=== PATIENT | female | born 1955 | race Caucasian/White ===

== ENCOUNTER 2016-07-17 04:53 | Inpatient (IN) | payer BC, OTHER ==
--- NOTE | 2016-06-18 09:22 | HISTORY & PHYSICAL EXAMINATION ---
DATE OF ADMISSION: 07/17/2016 PROCEDURE: Right knee replacement. HISTORY OF PRESENT ILLNESS: Codie is a pleasant 61-year-old female who presents for preoperative evaluation prior to a right knee replacement. She has been having pain in this knee for many years now, which has gradually worsened, she has had previous cortisone injections, as well as viscosupplementation without relief. She has tried oral anti-inflammatories including naproxen, and also has taken an occasional [place] for pain. At this point in time, has failed conservative measures and after discussing further care will proceed with a right knee replacement. PAST MEDICAL HISTORY: 1. Hypertension. 2. Hypothyroidism. ALLERGIES: No known drug allergies. MEDICATIONS: 1. Levothyroxine 88 mcg daily. 2. Losartan 50 mg daily. 3. Aleve as needed. FAMILY HISTORY: Noncontributory. SOCIAL HISTORY: The patient is . Lives in a 1 story home. Denies a history of smoking or tobacco use. Consumes 2 alcoholic beverages per week. PAST SURGICAL HISTORY: 1. Left toe surgery 2013. 2. Right great toe surgery 2013. 3. Carpal tunnel bilateral hands 2013. 4. Trigger thumb both hands 2013. 5. Rectocele repair in 1979. REVIEW OF SYSTEMS: Otherwise negative. Please see HPI for pertinent positives. PHYSICAL EXAMINATION: GENERAL: Allen 61-year-old female in no acute distress, alert and oriented x3. She is inches tall, weighs 166 pounds. HEENT: Normocephalic, atraumatic. CARDIAC: Regular rate and rhythm. No murmurs or gallops appreciated. Resting pulse 76 beats per minute. LUNGS: Clear to auscultation without rales or wheeze bilaterally. ABDOMEN: Soft, nontender. Bowel sounds present. EXTREMITIES: Right lower extremity is neurovascularly intact. Calves are soft and nontender. DP pulse +2. Overall has varus alignment. She has positive crepitation with motion. Range of motion is 0/3/115. Knee is ligamentously stable. Imaging reviewed of the right knee show findings consistent with degenerative joint disease including joint space narrowing, subchondral sclerosis, peripheral osteophytes noted. Has complete loss of joint space of the medial compartment and varus alignment. IMPRESSION: 1. Right knee degenerative joint disease. 2. Hypertension. 3. Hypothyroidism. PLAN: Further care discussed with patient. At this point in time, has failed conservative measures, will proceed with a right knee replacement. Will place on aspirin 81 mg p.o. b.i.d. for a month postop. Will discuss with bilingual social worker in-home therapy for 2 weeks postop.
[2016-07-17] VITALS (11 sets, daily range): BP systolic 90–131; BP diastolic 51–85; PULSE 63–77; TEMP 36.2–36.7; O2SAT 94–100; Ht 160 cm; Wt 77.7 kg
[~2016-07-17] VITALS: Ht 160 cm; Wt 77.7 kg
[~2016-07-17 04:53] MED LIST: CALC1CAP24 PO; CHOL1000 PO; CYAN500T PO; GLUC1CAP33 PO; LEVO88TA3 PO; LOSA50TA6 PO; NAPR-1169 PO; PAIN MEDICATION PO; ZOLP10TA6 PO; [UNRECOGNIZED DRUG - OTHER] PO
[2016-07-17] MEDS ORDERED: ACETAMINOPHEN 500 MG TAB PO SCH (06:00)
[2016-07-17] MEDS ORDERED: FAMOTIDINE 20 MG TAB PO SCH (06:00)
[2016-07-17] MEDS ORDERED: LACTATED RINGER'S 1000ML 500 ML IV ONE (06:00)
[2016-07-17] MEDS ORDERED: LACTATED RINGER'S 1000ML 1,000 ML IV SCH (06:00)
[2016-07-17] MEDS ORDERED: LACTATED RINGER'S 500 ML IV SCH (06:00)
[2016-07-17] MEDS ORDERED: DEXAMETHASONE 4 MG TAB PO SCH (06:00)
[2016-07-17] MEDS ORDERED: METOCLOPRAMIDE HCL 10 MG TAB PO SCH (06:00)
[2016-07-17] MEDS ORDERED: CeleBREX 200 MG CAP PO SCH (06:00)
[2016-07-17] MEDS ORDERED: CEFAZOLIN 1000MG/55 ML D5W 55 ML IV SCH (06:00)
[2016-07-17] MEDS ORDERED: GABAPENTIN 300 MG CAP PO SCH (06:00)
[2016-07-17] MEDS ORDERED: ROPIVACAINE 5MG/ML 30 ML 150 MG, BUPIVACAINE/EPINEPHR 0.5% MPF 30 ML, KETOROLAC TROMETH... INFIL SCH ×7 (06:00)
[2016-07-17] MEDS ORDERED: BUPIVACAINE 0.5 % 5 MG/1 ML PF 10ML VIAL ONE (06:28)
[2016-07-17] MEDS ORDERED: BUPIVACAINE 0.25% 30 ML VIAL ONE (06:29)
[2016-07-17] MEDS ORDERED: NURSING VERBAL MED ORDER ONE (06:45)
[2016-07-17] MEDS ORDERED: LACTATED RINGER'S 1000ML 1,000 ML IV PRN (06:49)
[2016-07-17] MEDS ORDERED: ONDANSETRON INJ 2 MG/ML 2 ML VIAL IV PRN ×2 (07:00→09:15)
[2016-07-17] MEDS ORDERED: FENTANYL CITRATE INJ 50 MCG/1 ML 2 ML VIAL IV PRN (07:00)
[2016-07-17] MEDS: TRANEXAMIC ACID INJ 1,000 MG in SODIUM CHLORIDE 0.9% 100ML 100 ML IV SCH ×2 (07:03→10:43)
--- NOTE | 2016-07-17 07:12 | History & Physical Bridge Note ---
H&P Re-Evaluation Bridge Note: I have examined the patient, reviewed the History & Physical and in the interval since the performance of the History & Physical I have noted the following changes of clinical significance: No changes noted
--- NOTE | 2016-07-17 08:21 | [facility] Post Operative Brief Note ---
Immediate Operative Summary Operative Date Jul 17, 2016. Pre-Operative Diagnosis Right Knee Degenerative Joint Disease Post-Operative Diagnosis Right Knee Degenerative Joint Disease Procedure(s) Performed Right Total Knee Arthroplasty Surgeon Dr. Xander Barrett Health Services Director Surgeon(s) Ridge Alex PA-C Estimated Blood Loss 10 ML Findings severe djd rt knee Specimens A. Right knee bone and tissue Complication(s) None Disposition Recovery Room / PACU
[2016-07-17] MEDS ORDERED: BACITRACIN 50000 UNIT VIAL IR ONE (08:27)
[2016-07-17] MEDS ORDERED: POVIDONE-IODINE OP SOLN 30 ML BTL TOP ONE (08:27)
--- NOTE | 2016-07-17 08:32 | OPERATIVE REPORT ---
DATE OF OPERATION: 07/17/2016 PREOPERATIVE DIAGNOSIS: Severe degenerative joint disease, right knee. POSTOPERATIVE DIAGNOSIS: Severe degenerative joint disease, right knee. PROCEDURE: Right total knee arthroplasty utilizing Stratton \T\ Nephew Journey II patient matched block knee. SURGEON: Dr. Barrett. ENVIRONMENTAL HEALTH SAFETY MANAGER: Ridge Alex, who was necessary for prepping, draping, retraction, closure of deep fascia, subQ and skin and was necessary for the case. ESTIMATED BLOOD LOSS: 10 mL. TOURNIQUET TIME: 40 minutes. COMPLICATIONS: None. HISTORY OF PRESENT ILLNESS: The patient presents as a very pleasant 61-year-old white female who presents with complaints of severe end-stage degenerative joint disease of her right knee. She has failed attempts at conservative management including physical therapy, anti-inflammatories, relative rest, activity modification and she presents for total knee arthroplasty. OPERATION AND FINDINGS: PROCEDURE: The patient was properly prepped and draped in supine position for total knee arthroplasty after identifying the appropriate surgical site. An anterior midline incision was made through the subcutaneous tissues down to the region of the extensor mechanism. A medial parapatellar incision was subsequently made. Meticulous hemostasis was obtained and performed at all times. The patella having been subluxed lateralward, medial and lateral meniscal remnants were excised. The patellar cut was then initially made and was sized to the appropriate size. After subluxing the tibia forward the appropriate meniscal fragments having been removed the distal femur was then cut first utilizing a Stratton and Nephew block. The distal femoral cuts and chamfer cuts were all made under direct visualization and the proximal tibial osteotomy cut was also made utilizing Stratton and Nephew blocks and checked with an extramedullary guide. The appropriate trial components on the femur and tibia were placed. Appropriate trial spacers were used to check flexion and extension gaps. With flexion and extension gaps being equal, the components were then subsequently after thorough irrigation and debridement lavage components were then subsequently cemented in the following order: size 4 femur, 3 tibia, 13 poly and 29 oval patella. Exparel was used for intraoperative anesthesia, the medial parapatellar incision was closed utilizing #1 Vicryl, subQ was closed with 2-0 Vicryl, skin was closed with skin clips. A sterile compression dressing was placed. The patient was taken to recovery room in stable condition. Due to the complex nature of the procedure, the entire surgery was performed with the operational assistance of Ridge Alex PA-C. The clinical services assistant, under direct supervision, was involved in the actual performance of all aspects of the surgical procedure including hemostasis, tissue retraction and incision, instrument management, patient positioning, and wound closure. I attest to the content of the Intraoperative Record and any orders documented therein. Any exceptio ns are noted below.
[2016-07-17] MEDS ORDERED: MAGNESIUM HYDROXIDE SUSP 30 ML UDC PO PRN (09:15)
[2016-07-17] MEDS ORDERED: SOD PHOSPHATE/SOD BIPHOSPHATE ENEMA 132 ML BTL PR PRN (09:15)
[2016-07-17] MEDS ORDERED: BISACODYL 10 MG SUPP PR PRN (09:15)
[2016-07-17] MEDS ORDERED: MoRPHine SULFATE 2 MG/ML CARP IV PRN (09:15)
[2016-07-17] MEDS ORDERED: KETOROLAC TROMETHAMINE 30 MG/ML VIAL IV. PRN (09:15)
[2016-07-17] MEDS ORDERED: ALUMINUM/MAGNESIUM/SIMETH (MAALOX MAX) 30 ML UDC PO PRN (09:15)
--- NOTE | 2016-07-17 09:49 | DIAGNOSTIC IMAGING REPORT ---
RIGHT KNEE 2 VIEWS History: Right total knee arthroplasty. Degenerative arthritis. Postop. FINDINGS: The patient is status post a right total knee arthroplasty. The hardware is intact. No fracture or dislocation. Surgical drains are in place. IMPRESSION: Right total knee arthroplasty. No evidence for hardware complication. Electronically signed by: Simeon Obando M.D. 07/17/2016 9:47 AM Dictated Date/Time: 07/17/2016 9:38 AM
--- NOTE | 2016-07-17 09:56 | Anesthesiology Progress Note ---
Anesthesia Post Op Note Date & Time Jul 17, 2016 at 09:55 Vital Signs Pain Intensity: 0 Vital Signs Past 12 Hours Date Time Temp Pulse Resp B/P Pulse Ox O2 Delivery O2 Flow Rate FiO2 07/17/16 09:40 56 14 92/64 100 Nasal Cannula 2 07/17/16 09:30 55 14 84/63 100 Nasal Cannula 2 07/17/16 09:20 59 14 90/59 100 Nasal Cannula 2 07/17/16 09:10 63 14 91/62 100 Nasal Cannula 2 07/17/16 09:02 36.6 72 12 89/59 97 Nasal Cannula 2 07/17/16 05:50 36.5 72 18 117/85 98 Room Air Notes Mental Status: alert / awake / arousable, participated in evaluation Nausea / Vomiting: adequately controlled Pain: adequately controlled Airway Patency, RR, SpO2: stable & adequate BP & HR: stable & adequate Hydration State: stable & adequate Neuraxial Anesthesia: was administered, sensory block is resolving Anesthetic Complications: no major complications apparent Pt doing well.
[2016-07-17] MEDS ORDERED: MoRPHine SULFATE 4 MG/ML 1 ML CARP\\VIAL IV PRN (11:00)
[2016-07-17] MEDS ORDERED: MoRPHine SULFATE 10 MG/ML CARP/VIAL IV PRN (11:00)
[2016-07-17] MEDS: D5W AND 1/2NSS + 20MEQ KCL 1,000 ML IV SCH ×2 (11:24→21:33)
[2016-07-17] MEDS: FERROUS GLUCONATE 324 MG TAB PO SCH ×2 (11:25→17:57)
[2016-07-17] MEDS: ACETAMINOPHEN 500 MG TAB PO SCH ×2 (14:03→21:36)
[2016-07-17] MEDS: CEFAZOLIN IV 1,000 MG in DEXTROSE 5% 50ML 50 ML IV SCH ×2 (16:01→23:41)
[2016-07-17] MEDS: ASPIRIN 81 MG ECTAB PO SCH (21:34)
[2016-07-17] MEDS: SENNA 8.6 MG TAB PO SCH (21:35)
[2016-07-17] MEDS: DOCUSATE SODIUM 100 MG CAP PO SCH (21:35)
[2016-07-17] MEDS: OXYCODONE HCL 10 MG TABCR (OXYCONTIN) PO SCH (21:35)
[2016-07-17] MEDS: OXYCODONE HCL IR 5 MG TAB (IMMEDIATE RELEASE) PO PRN (21:36)
[2016-07-17] MEDS: ZOLPIDEM TARTRATE 10 MG TAB PO PRN (23:49)
[2016-07-18 03:50] VITALS: BP 105/71; PULSE 67; TEMP 36.5; O2SAT 97
[2016-07-18] MEDS: D5W AND 1/2NSS + 20MEQ KCL 1,000 ML IV SCH (06:03)
[2016-07-18] MEDS: LEVOTHYROXINE 88 MCG TAB PO SCH (06:03)
[2016-07-18] MEDS: ACETAMINOPHEN 500 MG TAB PO SCH ×3 (06:04→22:03)
[2016-07-18 06:27] LABS: HEMATOCRIT 30.3 % (37-47); MEAN CELL VOLUME 89.9 fL (80-100); MEAN CORPUSCULAR HEMOGLOBIN 29.7 pg (25-34); PLATELET COUNT 255 K/uL (130-400); RED BLOOD COUNT 3.37 M/uL (4.2-5.4); WHITE BLOOD COUNT 18.15 K/uL (4.8-10.8)
[2016-07-18 06:33] LABS: PROTHROMBIN TIME (PATIENT) 10.9 SECONDS (9.0-12.0)
[2016-07-18 06:53] LABS: BUN/CREATININE RATIO 21.8 (10-20); CALCIUM 8.8 mg/dl (8.5-10.1); CREATININE 0.74 mg/dl (0.60-1.20); POTASSIUM 4.2 mmol/L (3.5-5.1)
[2016-07-18 07:19] VITALS: BP 106/71; PULSE 67; TEMP 36.3; O2SAT 99
--- NOTE | 2016-07-18 07:22 | Orthopedic Progress Note ---
Orthopedic Progress Note Date of Service Jul 18, 2016. Subjective Post OP Day: 1 (right TKA) Reports: feeling well, pain controlled w PO medications, Denies: SOB, calf pain , chest pain, complaints, light headedness, nausea / vomiting Objective calves soft nontender, N/V intact, capillary refill less than 2 sec., dressing C /D/I, A&O x3, toes mobile Date Time Temp Pulse Resp B/P Pulse Ox O2 Delivery O2 Flow Rate FiO2 07/18/16 03:50 36.5 67 16 105/71 97 Room Air 07/17/16 23:52 69 101/65 07/17/16 23:35 Room Air 07/17/16 23:32 36.7 72 16 90/51 95 Room Air 07/17/16 19:35 36.6 73 16 131/78 95 Room Air 07/17/16 16:05 36.4 68 18 107/69 94 Room Air 07/17/16 13:11 77 18 107/69 07/17/16 12:30 Room Air 07/17/16 12:10 63 18 109/73 07/17/16 11:02 69 18 111/76 07/17/16 10:38 69 18 103/68 97 2.0 07/17/16 10:33 100 Nasal Cannula 2.0 07/17/16 10:27 36.2 72 16 115/55 100 Nasal Cannula 2.0 07/17/16 10:23 100 Nasal Cannula 2.0 07/17/16 10:05 59 12 99/68 100 Nasal Cannula 2 07/17/16 10:00 58 12 92/65 99 Nasal Cannula 2 07/17/16 09:50 36.4 61 15 102/71 100 Nasal Cannula 2 07/17/16 09:40 56 14 92/64 100 Nasal Cannula 2 07/17/16 09:30 55 14 84/63 100 Nasal Cannula 2 07/17/16 09:20 59 14 90/59 100 Nasal Cannula 2 07/17/16 09:10 63 14 91/62 100 Nasal Cannula 2 07/17/16 09:02 36.6 72 12 89/59 97 Nasal Cannula 2 Laboratory Results 24 Hours: Test 07/18/16 05:55 Hematocrit 30.3 % Hemoglobin 10.0 g/dL Prothromb Time International Ratio 1.0 Prothrombin Time 10.9 SECONDS Assessment & Plan Assessment: POD #1 s/p Right TKA -DVT proph with TEDs/SCDs/ASA -plan for d/c home with HHPT when stable -PT/OT, TKA protocol -prinea dressing 1. Hypertension. 2. Hypothyroidism. Discharge Planning Discharge Planning: home with home health DVT Prophylaxis: TEDs, SCDs, ASA Therapy: Physical Therapy
--- NOTE | 2016-07-18 07:48 | Discharge Instructions ---
Discharge Instructions Admission Reason for Admission: Right Knee Osteoarthritis Discharge Discharge Diagnosis / Problem: s/p right total knee replacement Discharge Goals Goal(s): Decrease discomfort, Improve function, Increase independence Activity Recommendations Activity Limitations: as noted below Weightbearing Status: Right weightbearing (as tolerated) . Instructions / Follow-Up Instructions / Follow-Up ACTIVITY RECOMMENDATIONS: SELF CARE INSTRUCTIONS AFTER TOTAL KNEE REPLACEMENT A. You may need to continue a physical therapy program after discharge from the hospital. There are several options available to you. Your doctor will assist you in selecting the best one for you. 1. An out-patient facility 2 to 3 times a week for therapy or home therapy. 2. Continue working on all exercises taught to you in the hospital. Your goals should be to increase bending of your knee to 90 degrees and beyond and to fully straighten your knee. B. You may progress at your own pace from walking with a walker or crutches to a cane; then to no assistive devices. C. Make walking a part of your daily routine. Be up as much as comfortable with rest periods throughout the day. Rest with leg elevation is very important. Use the ice wrap frequently for the first 3-4 weeks. D. There are no restrictions on activities. You may ride in a car, shop, participate in cotton grader and all social activities. E. Wear the long elastic stockings (CARLITOS hose) 20 hours a day for 2 weeks after surgery. They can be removed several times a day for laundering and for a bath. F. You may shower, no tub baths until cleared by your doctor. SPECIAL CARE INSTRUCTIONS: VERY IMPORTANT TO READ AND REVIEW A. There are a few signs you need to watch for after you are home. Call [facility] if you notice any of the followin. Increased severe knee pain. Some pain is expected especially when you exercise. 2. Increased swelling in your leg or knee; pain or swelling of the calf muscle in either lower leg. 3. Any fluid drainage from the incision. 4. Shortness of breath or chest pain. B. Please call [facility] at if you have any concerns or questions about your operation or recovery. The doctor or his nurse will return your call promptly. C. You must take antibiotics before dental work, bladder, bowel or other surgery. Your doctor will provide you with a permanent care to carry describing this precaution. IMPORTANT: * REMEMBER TO TAKE ASPIRIN, 81 MG, TWICE DAILY FOR 4 WEEKS UNLESS OTHERWISE DIRECTED. THIS IS YOUR BLOOD THINNER. * HIGH RISK PATIENTS MAY BE PRESCRIBED A STRONGER BLOOD THINNER. THIS WILL BE PROVIDED AT DISCHARGE. * CALL IF INCREASED PAIN, REDNESS, DRAINAGE OR FEVER GREATER THAT 101. * WEAR CARLITOS HOSE 20 HOURS PER DAY FOR 2 WEEKS. * DERMABOND Prineo- This is a mesh tape dressing that is covered with glue. It should remain in place until the incision is properly healed, usually 10-14 days. This dressing is designed to naturally slough off. You may trim the excess mesh tape as it peels off. Incision may be briefly wet in a shower. Dry immediately by blotting with a clean, dry towel. Do not bath or swim until instructed by your doctor. Do not scratch, rub, or pick at the dressing. Do not apply any topical ointments or lotions until dressing is completely removed and/or instructed by your doctor. There may be a small piece of suture material at one end of your incision. Do not pull or trim this. If it is bothersome or catching on clothing, you may cover it with a band-aid. FOLLOW UP VISIT: If appointment is not already scheduled: Please call [facility] to make a follow-up appointment for 2 weeks after your surgery at . Current Hospital Diet Patient's current hospital diet: Regular Diet Discharge Diet Recommended Diet: Regular Diet Procedures Procedures Performed: Right Total Knee Arthroplasty Cemented Pending Studies Studies pending at discharge: no Laboratory Results Hemoglobin A1c Test 06/18/16 15:31 Range/Units Estimated Average Glucose 108 mg/dl Hemoglobin A1c 5.4 4.5-5.6 % Medical Emergencies . Who to Call and When: Medical Emergencies: If at any time you feel your situation is an emergency, please call 911 immediately. . Non-Emergent Contact Non-Emergency issues call your: Primary Care Provider, Surgeon . "Provider Documentation" section prepared by Ridge Alex. VTE Core Measure Inpt VTE Proph given/why not?: Other Anticoagulation (ASA 81mg po bid x 1 month ), T.E.D. Stockings, SCD's
[2016-07-18] MEDS: PANTOprazole SOD 40 MG TAB PO SCH (08:30)
[2016-07-18] MEDS: LOSARTAN POTASSIUM 50 MG TAB PO SCH (08:30)
[2016-07-18] MEDS: ASPIRIN 81 MG ECTAB PO SCH ×2 (08:30→20:58)
[2016-07-18] MEDS: MULTIVITAMIN TAB PO SCH (08:30)
[2016-07-18] MEDS: DOCUSATE SODIUM 100 MG CAP PO SCH ×2 (08:30→20:58)
[2016-07-18] MEDS: FERROUS GLUCONATE 324 MG TAB PO SCH ×3 (08:30→17:52)
[2016-07-18] MEDS: OXYCODONE HCL 10 MG TABCR (OXYCONTIN) PO SCH ×2 (08:33→20:58)
[2016-07-18] MEDS: OXYCODONE HCL IR 5 MG TAB (IMMEDIATE RELEASE) PO PRN ×4 (08:34→22:04)
--- NOTE | 2016-07-18 10:37 | Anesthesiology Progress Note ---
Anesthesia Post Op Note Date & Time Jul 18, 2016 at 10:35 Vital Signs Pain Intensity: 7.0 Vital Signs Past 12 Hours Date Time Temp Pulse Resp B/P Pulse Ox O2 Delivery O2 Flow Rate FiO2 07/18/16 07:38 Room Air 07/18/16 07:19 36.3 67 16 106/71 99 Room Air 07/18/16 03:50 36.5 67 16 105/71 97 Room Air 07/17/16 23:52 69 101/65 07/17/16 23:35 Room Air 07/17/16 23:32 36.7 72 16 90/51 95 Room Air Notes Mental Status: alert / awake / arousable, participated in evaluation Pt Amnestic to Procedure: Yes Nausea / Vomiting: adequately controlled Pain: adequately controlled Airway Patency, RR, SpO2: stable & adequate BP & HR: stable & adequate Hydration State: stable & adequate Neuraxial Anesthesia: sensory block resolved Anesthetic Complications: no major complications apparent
[2016-07-18 11:03] VITALS: BP 101/66; PULSE 68; TEMP 36.4; O2SAT 98
[2016-07-18 15:04] VITALS: BP 118/78; PULSE 72; TEMP 36.3; O2SAT 98
[2016-07-18] MEDS: MoRPHine SULFATE 2 MG/ML CARP IV PRN ×3 (16:40→23:43)
[2016-07-18 19:36] VITALS: BP 117/76; PULSE 76; TEMP 36.5; O2SAT 96
[2016-07-18] MEDS: CeleBREX 200 MG CAP PO SCH (20:58)
[2016-07-18] MEDS: SENNA 8.6 MG TAB PO SCH (20:58)
[2016-07-18] MEDS: ZOLPIDEM TARTRATE 10 MG TAB PO PRN (22:03)
[2016-07-18 23:50] VITALS: BP 118/79; PULSE 75; TEMP 36.8; O2SAT 96
[2016-07-19] MEDS: OXYCODONE HCL IR 5 MG TAB (IMMEDIATE RELEASE) PO PRN ×3 (02:14→12:24)
[2016-07-19] MEDS: LEVOTHYROXINE 88 MCG TAB PO SCH (06:04)
[2016-07-19] MEDS: ACETAMINOPHEN 500 MG TAB PO SCH (06:04)
--- NOTE | 2016-07-19 07:22 | Orthopedic Progress Note ---
Orthopedic Progress Note Date of Service Jul 19, 2016. Subjective Post OP Day: 2 Reports: feeling well, pain controlled w PO medications, Denies: SOB, calf pain , chest pain, complaints, light headedness, nausea / vomiting Objective calves soft nontender, N/V intact, capillary refill less than 2 sec., incision C /D/I, A&O x3, toes mobile Date Time Temp Pulse Resp B/P Pulse Ox O2 Delivery O2 Flow Rate FiO2 07/18/16 23:50 36.8 75 16 118/79 96 Room Air 07/18/16 23:35 Room Air 07/18/16 19:36 36.5 76 16 117/76 96 Room Air 07/18/16 15:45 Room Air 07/18/16 15:04 36.3 72 16 118/78 98 Room Air 07/18/16 11:03 36.4 68 16 101/66 98 Room Air 07/18/16 07:38 Room Air Assessment & Plan Assessment: POD #2 s/p Right TKA -DVT proph with TEDs/SCDs/ASA -plan for d/c home with HHPT after PT today -PT/OT, TKA protocol -prinea dressing 1. Hypertension. 2. Hypothyroidism. Discharge Planning Discharge Planning: home with home health DVT Prophylaxis: TEDs, SCDs, ASA Therapy: Physical Therapy
[2016-07-19] MEDS ORDERED: CLB200 PO (07:31)
[2016-07-19] MEDS ORDERED: CLC100 PO (07:31)
[2016-07-19] MEDS ORDERED: OXYSR10 PO (07:31)
[2016-07-19] MEDS ORDERED: ONDA8TAB6 PO (07:31)
[2016-07-19] MEDS ORDERED: ASPEC81 PO (07:31)
[2016-07-19] MEDS ORDERED: RXC5 PO (07:31)
[2016-07-19] MEDS ORDERED: ACET-1138 PO (07:31)
[2016-07-19 07:33] VITALS: BP 123/85; PULSE 68; TEMP 36.4; O2SAT 96
--- NOTE | 2016-07-19 07:34 | Discharge Summary ---
Orthopedic Discharge Summary Admission Date/Reason Jul 17, 2016 at 09:10 Right Knee Osteoarthritis. Discharge Date/Disposition Jul 19, 2016 Home with services Diagnosis Principal Diagnosis: s/p Right TKA Procedure(s) Performed Right Total Knee Replacement Consultations NONE Medication Reconciliation New Medications: Ondansetron Hcl (Zofran) 8 Mg Tab 8 MG PO Q8 PRN for Nausea, #20 TAB Acetaminophen (Tylenol Extra Strength) 500 Mg Tab 1000 MG PO Q8H, #126 TAB Aspirin (Aspirin EC Low Dose) 81 Mg Ectab 81 MG PO BID for 30 Days Celecoxib (Celebrex) 200 Mg Cap 200 MG PO BID, #60 CAP Docusate Sodium (Docusate Sodium) 100 Mg Cap 100 MG PO BID for 15 Days, #30 CAP Oxycodone HCl (Oxycontin) 10 Mg Tabcr 10 MG PO Q12, #20 Oxycodone HCl (Oxycodone HCl) 5 Mg Tab 5-10 MG PO Q4H PRN for Pain, #60 TAB Continued Medications: Calcium (Calcium) Unknown Strength Cap Unknown Dose PO QAM Cholecalciferol (Vitamin D3) 1,000 Unit Tab 1 TAB PO QAM, TAB Cyanocobalamin (Vitamin B-12) Unknown Strength Tab Unknown Dose PO QAM, TAB Glucosamine-Chondroitin (Glucosamine & Chondroitin 500-400 mg) Unknown Strength Cap Unknown Dose PO QAM Levothyroxine Sodium (Levothyroxine Sodium) 88 Mcg Tab 1 TAB PO QAM, TAB Losartan Potassium (Cozaar) 50 Mg Tab 50 MG PO QAM, TAB Zolpidem Tartrate (Zolpidem Tartrate) 10 Mg Tab 1 TAB PO HS PRN for Sleep, TAB [Cleansing Vitamin ] () Unknown Strength Unknown Dose PO QAM PATIENT DOES NOT KNOW NAME OR DOSE OF THIS VITAMIN Discontinued Medications: Naproxen (Naprosyn) 500 Mg Tab 500 MG PO BID, TAB Admission Physical Exam As per Admitting History & Physical. Hospital Course Patient was a same day admission after undergoing a successful right TKA. she tolerated the procedure well. Post-operatively, her activity was progressed and well tolerated. Please refer to daily progress notes and PT notes for complete details. After exam on 07/19/16, patient felt to be stable for discharge home with HHPT. Patient will f/u in the office in 2 weeks for further evaluation including x-rays and incision check, sooner if having any issues or concerns. Below are pertinent labs/studies during their hospital stay: Last Resulted CBC 07/18/16 05:55 Last Resulted BMP 07/18/16 05:55 Last Vital Signs Documentation Date Time Temp Pulse Resp B/P Pulse Ox O2 Delivery O2 Flow Rate FiO2 07/18/16 23:50 36.8 75 16 118/79 96 Room Air 07/17/16 10:38 2.0 Discharge Instructions ACTIVITY RECOMMENDATIONS: SELF CARE INSTRUCTIONS AFTER TOTAL KNEE REPLACEMENT A. You may need to continue a physical therapy program after discharge from the hospital. There are several options available to you. Your doctor will assist you in selecting the best one for you. 1. An out-patient facility 2 to 3 times a week for therapy or home therapy. 2. Continue working on all exercises taught to you in the hospital. Your goals should be to increase bending of your knee to 90 degrees and beyond and to fully straighten your knee. B. You may progress at your own pace from walking with a walker or crutches to a cane; then to no assistive devices. C. Make walking a part of your daily routine. Be up as much as comfortable with rest periods throughout the day. Rest with leg elevation is very important. Use the ice wrap frequently for the first 3-4 weeks. D. There are no restrictions on activities. You may ride in a car, shop, participate in thermal cutter helper and all social activities. E. Wear the long elastic stockings (CARLITOS hose) 20 hours a day for 2 weeks after surgery. They can be removed several times a day for laundering and for a bath. F. You may shower, no tub baths until cleared by your doctor. SPECIAL CARE INSTRUCTIONS: VERY IMPORTANT TO READ AND REVIEW A. There are a few signs you need to watch for after you are home. Call [facility] if you notice any of the followin. Increased severe knee pain. Some pain is expected especially when you exercise. 2. Increased swelling in your leg or knee; pain or swelling of the calf muscle in either lower leg. 3. Any fluid drainage from the incision. 4. Shortness of breath or chest pain. B. Please call [facility] at if you have any concerns or questions about your operation or recovery. The doctor or his nurse will return your call promptly. C. You must take antibiotics before dental work, bladder, bowel or other surgery. Your doctor will provide you with a permanent care to carry describing this precaution. IMPORTANT: * REMEMBER TO TAKE ASPIRIN, 81 MG, TWICE DAILY FOR 4 WEEKS UNLESS OTHERWISE DIRECTED. THIS IS YOUR BLOOD THINNER. * HIGH RISK PATIENTS MAY BE PRESCRIBED A STRONGER BLOOD THINNER. THIS WILL BE PROVIDED AT DISCHARGE. * CALL IF INCREASED PAIN, REDNESS, DRAINAGE OR FEVER GREATER THAT 101. * WEAR CARLITOS HOSE 20 HOURS PER DAY FOR 2 WEEKS. * DERMABOND Prineo- This is a mesh tape dressing that is covered with glue. It should remain in place until the incision is properly healed, usually 10-14 days. This dressing is designed to naturally slough off. You may trim the excess mesh tape as it peels off. Incision may be briefly wet in a shower. Dry immediately by blotting with a clean, dry towel. Do not bath or swim until instructed by your doctor. Do not scratch, rub, or pick at the dressing. Do not apply any topical ointments or lotions until dressing is completely removed and/or instructed by your doctor. There may be a small piece of suture material at one end of your incision. Do not pull or trim this. If it is bothersome or catching on clothing, you may cover it with a band-aid. FOLLOW UP VISIT: If appointment is not already scheduled: Please call [facility] to make a follow-up appointment for 2 weeks after your surgery at .
[2016-07-19] MEDS: FERROUS GLUCONATE 324 MG TAB PO SCH ×2 (08:21→12:24)
[2016-07-19] MEDS: DOCUSATE SODIUM 100 MG CAP PO SCH (08:21)
[2016-07-19] MEDS: ASPIRIN 81 MG ECTAB PO SCH (08:22)
[2016-07-19] MEDS: OXYCODONE HCL 10 MG TABCR (OXYCONTIN) PO SCH (08:22)
[2016-07-19] MEDS: PANTOprazole SOD 40 MG TAB PO SCH (08:23)
[2016-07-19] MEDS: CeleBREX 200 MG CAP PO SCH (08:23)
[2016-07-19] MEDS: MULTIVITAMIN TAB PO SCH (08:23)
[2016-07-19] MEDS: LOSARTAN POTASSIUM 50 MG TAB PO SCH (08:24)
[2016-07-19 08:50] VITALS: BP 123/85; PULSE 68; TEMP 36.4; O2SAT 96
== END 2016-07-19 13:26 | disposition home health service (06) | DRG 470 ==
LOC: ENRESERVDT → ENRESERVTM → C.ACU 04:53 → C.3E 09:10
PROVIDERS: ADMIT Orthopaedic Surgery; ATTEND Orthopaedic Surgery
PROC: 0SRC0J9 Replacement of Right Knee Joint with Synthetic Substitute, Cemented, Open Approach (ICD-10-PCS; principal; 2016-07-17 07:15)
DX: M17.11 Unilateral primary osteoarthritis, right knee (principal); I10 Essential (primary) hypertension; E03.9 Hypothyroidism, unspecified; E66.9 Obesity, unspecified; Z68.30 Body mass index [BMI] 30.0-30.9, adult; Z79.1 Long term (current) use of non-steroidal anti-inflammatories (NSAID); Z79.899 Other long term (current) drug therapy